=== PATIENT | female | born 1945 | race Caucasian/White ===

== ENCOUNTER → 2017-02-02 | Outpatient (CLI) | payer OTHER ==
--- NOTE | 2017-02-02 14:37 | DI ---
MRI LUMBAR SPINE W/O CN,02/02/2017 1:12 PM: Clinical History: Low back pain Previous Exam: None at this facility. Findings: Multiplanar MR images are obtained through the lumbar spine without contrast. There is some gentle le voscoliosis of the lower lumbar spine centered at the L3/4 level. There are few subcentimeter simple cyst noted within the right kidney. The spinal cord descends normally with normal conus at the L1 level. The major vascular flow voids are unremarkable. There is some Modic type II degenerative changes of the L3/4 endplates with some endplate edema. The paraspinal musculature is unremarkable. Vertebral body height is preserved. There is significant facet arthropathy of the lower lumbar spine as well. Individual intervertebral disc spaces: L1/2: No significant stenosis. L2/3: There is disc desiccation and a broad-based disc bulge without significant stenosis. L3/4: There is bony edema involving the endplates bilaterally. There is disc desiccation and a broad- based disc bulge with some ligamentum flavum hypertrophy and facet hypertrophy. There is also some an nular fissuring. This contributes to mild central canal stenosis and moderate bilateral lateral reces s stenosis. L4/5: There is disc desiccation, annular fissuring and a broad-based disc bulge combining with facet and ligamentum flavum hypertrophy to cause moderate central canal stenosis. There is moderate bilater al lateral recess stenosis as well. L5/S1: There is disc desiccation, annular fissuring and a broad-based disc bulge combining with facet and ligamentum flavum hypertrophy to cause minimal central canal stenosis with moderate to severe le ft and mild right lateral recess stenosis. Impression: L3/4: There is bony edema involving the endplates bilaterally. There is disc desiccation and a broad- based disc bulge with some ligamentum flavum hypertrophy and facet hypertrophy. There is also some an nular fissuring. This contributes to mild central canal stenosis and moderate bilateral lateral reces s stenosis. L4/5: There is disc desiccation, annular fissuring and a broad-based disc bulge combining with facet and ligamentum flavum hypertrophy to cause moderate central canal stenosis. There is moderate bilater al lateral recess stenosis as well. L5/S1: There is disc desiccation, annular fissuring and a broad-based disc bulge combining with facet and ligamentum flavum hypertrophy to cause minimal central canal stenosis with moderate to severe le ft and mild right lateral recess stenosis.
== END ==
LOC: MRI 13:00
PROVIDERS: ATTEND Family Medicine
DX: M54.16 Radiculopathy, lumbar region (principal); M51.36 Other intervertebral disc degeneration, lumbar region
CPT/HCPCS: 72148